=== PATIENT | female | born 1965 | race African-American/Black ===

== ENCOUNTER 2018-08-25 10:14 | Outpatient (CLI) | payer BC ==
[2018-08-25 10:41] LABS: BLOOD UREA NITROGEN 11 mg/dL (7-18); CREATININE 0.8 MG/DL (0.55-1.30)
--- NOTE | 2018-08-25 15:26 | Diagnostic Imaging Report ---
Clinical Indication: Abdominal pain, ventral hernia Technique: No oral contrast, per referring physician request. IV administration nonionic contrast. Venous phase spiral acquisition obtained through the abdomen and pelvis. Multiplanar reconstructions were generated. Total dose length product 1502.14 mGycm. CTDIvol(s) 17.05,17.93 mGy. Dose reduction achieved using automated exposure control Comparison: none Findings: There is an umbilical hernia, which contains only fat. This demonstrates normal attenuation, no evidence of strangulation. Lack of enteric contrast limits assessment of the GI tract. The appendix is normal. There is no evidence of diverticulosis or diverticulitis. No small bowel distention. No free or loculated intraperitoneal gas or fluid is evident. The distal esophagus, stomach, duodenum are all unremarkable. The liver, gallbladder, bile ducts, pancreas, spleen, adrenals are unremarkable. The kidneys demonstrate subcentimeter low-attenuation lesions which are too small to characterize. No renal or ureteral calculi, hydronephrosis, or hydroureter demonstrated. The uterus is enlarged, demonstrates multiple masses consistent with fibroids including a pedunculated subserosal fibroid on the left. Multiple cervical nabothian cysts are incidentally noted. No adnexal mass. The bones demonstrate surgical fusion hardware in the lower lumbar spine. The included lung bases are clear Impression: No acute abnormality Small fat-containing umbilical hernia. No evidence of complication related to such Enlarged uterus with multiple masses, and consistent with fibroids Subcentimeter low-attenuation renal lesions, too small to characterize, most likely benign simple cysts. No further follow-up necessary Incidental findings as noted, including evidence of prior lumbar spine fusion surgery, cervical nabothian cysts The CT scanner at [facility] is accredited by the [employer] and the scans are performed using protocols designed to limit radiation exposure to as low as reasonably achievable to attain images of sufficient resolution adequate for diagnostic evaluation.
== END 2018-08-25 12:14 | disposition home or self-care (01) ==
LOC: CAT 10:14
DX: K43.9 Ventral hernia without obstruction or gangrene (principal); K42.9 Umbilical hernia without obstruction or gangrene; Z98.1 Arthrodesis status; N88.8 Other specified noninflammatory disorders of cervix uteri
CPT/HCPCS: 36415; 74177; 82565; 84520; Q9967

== ENCOUNTER 2018-09-14 05:27 | Day surgery (SDC) | payer BC ==
[~2018-09-14] VITALS: Ht 167.6 cm; Wt 97.5 kg
[2018-09-14] VITALS (11 sets, daily range): BP systolic 130–163; BP diastolic 58–84
[2018-09-14] MEDS ORDERED: ADVAIR 250-501 EACH INH (06:05)
[2018-09-14] MEDS ORDERED: LIPITOR10 MG ORAL (06:05)
[2018-09-14 07:00] LABS: BASOPHILS % (AUTO) 1.9 % (0.0-2.0); EOSINOPHILS % (AUTO) 2.4 % (0.0-3.0); HEMATOCRIT 38.8 % (37.0-47.0); HEMOGLOBIN 12.8 G/DL (12.0-16.0); LYMPHOCYTES % (AUTO) 35.2 % (20.0-45.0); MEAN CORPUSCULAR VOLUME 83 FL (80-99); NEUTROPHILS % (AUTO) 54.5 % (45.0-75.0); PLATELET COUNT 230 K/UL (150-450); RED BLOOD COUNT 4.66 M/UL (4.20-5.40); RED CELL DISTRIBUTION WIDTH 12.7 % (11.6-14.8); WHITE BLOOD COUNT 6.8 K/UL (4.8-10.8)
[2018-09-14 07:06] LABS: INR 0.9 (0.9-1.1)
--- NOTE | 2018-09-14 07:08 | Consultation ---
History of Present Illness General Date patient seen: Jul 12, 2018 Present Illness HPI 52 year old female referred to myself for evaluation of abdominal discomfort and mass by her PCP/OB. States that she first noted small lump above her umbilicus 2 years ago and more recently has began to note discomfort. Intermittent pain. no obstructive symptoms. no n/v/f/c. normal diet and bowel function. occasionally constipated. otherwise well. Allergies: Coded Allergies: No Known Allergies (Unverified , 09/14/18) Medication History Scheduled Atorvastatin Calcium* (Lipitor*), 10 MG ORAL BEDTIME, (Reported) Fluticasone/Salmeterol (Advair 250-50 Diskus), 1 PUFF INH NEEDED, (Reported) Patient History History Provided By: Patient, Medical Record, PMD Healthcare decision maker Resuscitation status Advanced Directive on File Past Medical/Surgical History Past Medical/Surgical History: (1) Ventral hernia Review of Systems All Other Systems: negative except mentioned in HPI Physical Exam General Appearance: no apparent distress, alert Lines, tubes and drains: peripheral HEENT: normocephalic, mucous membranes moist Neck: normal inspection Respiratory/Chest: normal breath sounds, no respiratory distress, no accessory muscle use Abdomen: normal bowel sounds, soft, no organomegaly, hernia - 1 cm reducible ventral hernia noted with discomfort on palpation Extremities: non-tender Skin Exam: warm/dry Neurologic: alert Last 24 Hour Vital Signs Date Time Temp Pulse Resp B/P (MAP) Pulse Ox O2 Delivery O2 Flow Rate FiO2 09/14/18 06:11 98.0 79 20 130/58 100 Room Air 09/14/18 06:08 Room Air Laboratory Tests Test 09/14/18 05:40 09/14/18 06:30 Urine HCG, Qualitative Negative (NEGATIVE) White Blood Count 6.8 K/UL (4.8-10.8) Red Blood Count 4.66 M/UL (4.20-5.40) Hemoglobin 12.8 G/DL (12.0-16.0) Hematocrit 38.8 % (37.0-47.0) Mean Corpuscular Volume 83 FL (80-99) Mean Corpuscular Hemoglobin 27.5 PG (27.0-31.0) Mean Corpuscular Hemoglobin Concent 33.0 G/DL (32.0-36.0) Red Cell Distribution Width 12.7 % (11.6-14.8) Platelet Count 230 K/UL (150-450) Mean Platelet Volume 7.2 FL (6.5-10.1) Neutrophils (%) (Auto) 54.5 % (45.0-75.0) Lymphocytes (%) (Auto) 35.2 % (20.0-45.0) Monocytes (%) (Auto) 6.0 % (1.0-10.0) Eosinophils (%) (Auto) 2.4 % (0.0-3.0) Basophils (%) (Auto) 1.9 % (0.0-2.0) Prothrombin Time Pending Prothromb Time International Ratio Pending Activated Partial Thromboplast Time Pending Sodium Level Pending Potassium Level Pending Chloride Level Pending Carbon Dioxide Level Pending Blood Urea Nitrogen Pending Creatinine Pending Estimat Glomerular Filtration Rate Pending Glucose Level Pending Calcium Level Pending Height (Feet): 5 Height (Inches): 6 Weight (Pounds): 215 Assessment/Plan Problem List: (1) Ventral hernia Assessment & Plan: Discussed findings with patient CT performed and noted. Given duration and symptoms recommend repair risks, benefits, and alternatives discussed with patient in detail. consent obtained surgery scheduled for 09/14/2018 lap vs open ventral hernia repair with mesh ICD Codes: K43.9 - Ventral hernia without obstruction or gangrene SNOMED: [id number] Dylan Graves Sep 14, 2018 07:08
[2018-09-14 07:15] LABS: ANION GAP 6 mmol/L (5-15); BLOOD UREA NITROGEN 6 mg/dL (7-18); CALCIUM 9.1 MG/DL (8.5-10.1); CARBON DIOXIDE 29 MMOL/L (21-32); CHLORIDE 104 MMOL/L (98-107); CREATININE 0.7 MG/DL (0.55-1.30); POTASSIUM 3.9 MMOL/L (3.5-5.1); SODIUM 139 MMOL/L (136-145)
[2018-09-14] MEDS ORDERED: ceFAZolin sod 2 GM in D5W 110 ML IV ONE (07:15)
--- NOTE | 2018-09-14 07:18 | Anethesia Preoperative Eval ---
Anesthesia Pre-op PMH/ROS General Date of Evaluation: Sep 14, 2018 Anesthesiologist: Markus ASA Score: ASA 2 Mallampati Score Class I : Soft palate, uvula, fauces, pillars visible Class II: Soft palate, uvula, fauces visible Class III: Soft palate, base of uvula visible Class IV: Only hard plate visible Mallampati Classification: Class II Surgeon: Ely Diagnosis: Ventral hernia Surgical Procedure: Laparoscopic ventral hernia repair Anesthesia History: none Family History: no anesthesia problems Allergies: Coded Allergies: No Known Allergies (Unverified , 09/14/18) Medications: see eMAR Patient NPO?: Yes NPO Date: Sep 13, 2018 NPO Time: 22:00 Past Medical History Cardiovascular: Reports: other - HLD; Denies: HTN, CAD, DE, valve dz, arrhythmia Pulmonary: Reports: asthma, JACOB; Denies: COPD, other Gastrointestinal/Genitourinary: Denies: GERD, CRI, ESRD, other Neurologic/Psychiatric: Denies: dementia, CVA, depression/anxiety, TIA, other Endocrine: Reports: DM - pre-DM; Denies: hypothyroidism, steroids, other HEENT: Denies: cataract (L), cataract (R), glaucoma, [place] (L[place] (R), other Hematology/Immune: Denies: anemia, DVT, bleeding disorder, other Musculoskeletal/Integumentary: Denies: OA, RA, DJD, DDD, edema, other Other: obesity - morbid PSxH Narrative: lumbar laminectomy, c/s Anesthesia Pre-op Phys. Exam Physician Exam Last Vital Signs Date Time Temp Pulse Resp B/P (MAP) Pulse Ox O2 Delivery O2 Flow Rate FiO2 09/14/18 06:11 98.0 79 20 130/58 100 Room Air Constitutional: NAD Cardiovascular: RRR Respiratory: CTA Airway Exam Mallampati Score: Class II MO: full ROM: full Teeth: intact Anesthesia Pre-op A/P Labs Hematology Test 09/14/18 06:30 White Blood Count 6.8 K/UL (4.8-10.8) Red Blood Count 4.66 M/UL (4.20-5.40) Hemoglobin 12.8 G/DL (12.0-16.0) Hematocrit 38.8 % (37.0-47.0) Mean Corpuscular Volume 83 FL (80-99) Mean Corpuscular Hemoglobin 27.5 PG (27.0-31.0) Mean Corpuscular Hemoglobin Concent 33.0 G/DL (32.0-36.0) Red Cell Distribution Width 12.7 % (11.6-14.8) Platelet Count 230 K/UL (150-450) Mean Platelet Volume 7.2 FL (6.5-10.1) Neutrophils (%) (Auto) 54.5 % (45.0-75.0) Lymphocytes (%) (Auto) 35.2 % (20.0-45.0) Monocytes (%) (Auto) 6.0 % (1.0-10.0) Eosinophils (%) (Auto) 2.4 % (0.0-3.0) Basophils (%) (Auto) 1.9 % (0.0-2.0) Coagulation Test 09/14/18 06:30 Prothrombin Time 9.7 SEC (9.30-11.50) Prothromb Time International Ratio 0.9 (0.9-1.1) Activated Partial Thromboplast Time 27 SEC (23-33) Chemistry Test 09/14/18 06:30 Sodium Level 139 MMOL/L (136-145) Potassium Level 3.9 MMOL/L (3.5-5.1) Chloride Level 104 MMOL/L (98-107) Carbon Dioxide Level 29 MMOL/L (21-32) Anion Gap 6 mmol/L (5-15) Blood Urea Nitrogen 6 mg/dL (7-18) L Creatinine 0.7 MG/DL (0.55-1.30) Estimat Glomerular Filtration Rate > 60 mL/min (>60) Glucose Level 111 MG/DL (74-106) H Calcium Level 9.1 MG/DL (8.5-10.1) Urine Test Test 09/14/18 05:40 Urine HCG, Qualitative Negative (NEGATIVE) Studies Pre-op Studies: EKG - sr Risk Assessment & Plan Assessment: ASA II Plan: GA Status Change Before Surgery: No Pre-Antibiotics Drug: Ancef 2g Given Within 1 Hr of Incision: Chetna Griggs MD Sep 14, 2018 07:18
[2018-09-14] MEDS ORDERED: Bupivacaine w/Epi 0.25% 30ml Vial INJ ONE (07:43)
[2018-09-14] MEDS ORDERED: fentaNYL 100 mcg/2 mL IV ONE (07:50)
[2018-09-14] MEDS ORDERED: Propofol 200mg/20ml IV ONE (07:50)
[2018-09-14] MEDS ORDERED: Midazolam 2mg/2ml Inj ONE (07:50)
[2018-09-14] MEDS ORDERED: Lidocaine 1% MPF 10mg/ml 5ml ONE (07:50)
[2018-09-14] MEDS ORDERED: Zemuron 50mg/5ml Inj IV ONE (07:52)
[2018-09-14] MEDS ORDERED: LR 1000ml ONE ×2 (08:00)
[2018-09-14] MEDS ORDERED: Dexamethasone 4mg/ml vial ONE (08:09)
[2018-09-14] MEDS ORDERED: Metoclopramide 10mg/2ml Inj ONE (08:09)
[2018-09-14] MEDS ORDERED: LR 1000ml 1,000 ML IVLG SCH (08:20)
[2018-09-14] MEDS ORDERED: Midazolam 2mg/2ml Inj IVP PRN (08:30)
[2018-09-14] MEDS ORDERED: Metoclopramide 10mg/2ml Inj IVP PRN (08:30)
[2018-09-14] MEDS ORDERED: Hydromorphone 0.5mg/0.5ml inj IVP PRN (08:30)
[2018-09-14] MEDS ORDERED: fentaNYL 100 mcg/2 mL IV PRN (08:30)
[2018-09-14] MEDS ORDERED: DiphenhydrAMINE 50mg/ml Inj IVP PRN (08:30)
[2018-09-14] MEDS ORDERED: LORazepam Inj 2mg/ml 1ml IV PRN (08:30)
--- NOTE | 2018-09-14 08:32 | Pre-Procedure Note/Attestation ---
Pre-Procedure Note/Attestation Complete Prior to Procedure Planned Procedure: not applicable Procedure Narrative: laparoscopic ventral hernia repair with mesh; possible open Indications for Procedure Pre-Operative Diagnosis: ventral/umbilical hernia; symptomatic Attestation I attest that I discussed the nature of the procedure; its benefits; risks and complications; and alternatives (and the risks and benefits of such alternatives ), prior to the procedure, with the patient (or the patient's legal pest control service representative). I attest that, if there was a reasonable possibility of needing a blood transfusion, the patient (or the patient's legal pest control service representative) was given the [facility] standardized written summary, pursuant to the Kunal [place]a Blood Safety Act ([place] Health and Safety Code # 1645, as amended). I attest that I re-evaluated the patient just prior to the surgery and that there has been no change in the patient's H&P, except as documented below: Dylan Graves Sep 14, 2018 08:32
--- NOTE | 2018-09-14 08:32 | History & Physical ---
History and Physical History & Physicial [facility] General Consult Note Patient Name: Sandra Kothari Unit Number: [id number] Date of : 1965 Patient Status: Registered Surgical Day Care Attending Doctor: Dylan Graves [facility] History of Present Illness General Date patient seen: Jul 12, 2018 Present Illness HPI 52 year old female referred to myself for evaluation of abdominal discomfort and mass by her PCP/OB. States that she first noted small lump above her umbilicus 2 years ago and more recently has began to note discomfort. Intermittent pain. no obstructive symptoms. no n/v/f/c. normal diet and bowel function. occasionally constipated. otherwise well. Allergies: Coded Allergies: No Known Allergies (Unverified , 09/14/18) Medication History Scheduled Atorvastatin Calcium* (Lipitor*), 10 MG ORAL BEDTIME, (Reported) Fluticasone/Salmeterol (Advair 250-50 Diskus), 1 PUFF INH NEEDED, (Reported) Patient History History Provided By: Patient, Medical Record, PMD Healthcare decision maker Resuscitation status Advanced Directive on File Past Medical/Surgical History Past Medical/Surgical History: (1) Ventral hernia ROS Review of Systems All Other Systems: negative except mentioned in HPI Physical Exam Physical Exam General Appearance: no apparent distress, alert Lines, tubes and drains: peripheral HEENT: normocephalic, mucous membranes moist Neck: normal inspection Respiratory/Chest: normal breath sounds, no respiratory distress, no accessory muscle use Abdomen: normal bowel sounds, soft, no organomegaly, hernia - 1 cm reducible ventral hernia noted with discomfort on palpation Extremities: non-tender Skin Exam: warm/dry Neurologic: alert Last 24 Hour Vital Signs Date Time Temp Pulse Resp B/P (MAP) Pulse Ox O2 Delivery O2 Flow Rate FiO2 09/14/18 06:11 98.0 79 20 130/58 100 Room Air 09/14/18 06:08 Room Air Laboratory Tests Test 09/14/18 05:40 09/14/18 06:30 Urine HCG, Qualitative Negative (NEGATIVE) White Blood Count 6.8 K/UL (4.8-10.8) Red Blood Count 4.66 M/UL (4.20-5.40) Hemoglobin 12.8 G/DL (12.0-16.0) Hematocrit 38.8 % (37.0-47.0) Mean Corpuscular Volume 83 FL (80-99) Mean Corpuscular Hemoglobin 27.5 PG (27.0-31.0) Mean Corpuscular Hemoglobin Concent 33.0 G/DL (32.0-36.0) Red Cell Distribution Width 12.7 % (11.6-14.8) Platelet Count 230 K/UL (150-450) Mean Platelet Volume 7.2 FL (6.5-10.1) Neutrophils (%) (Auto) 54.5 % (45.0-75.0) Lymphocytes (%) (Auto) 35.2 % (20.0-45.0) Monocytes (%) (Auto) 6.0 % (1.0-10.0) Eosinophils (%) (Auto) 2.4 % (0.0-3.0) Basophils (%) (Auto) 1.9 % (0.0-2.0) Prothrombin Time Pending Prothromb Time International Ratio Pending Activated Partial Thromboplast Time Pending Sodium Level Pending Potassium Level Pending Chloride Level Pending Carbon Dioxide Level Pending Blood Urea Nitrogen Pending Creatinine Pending Estimat Glomerular Filtration Rate Pending Glucose Level Pending Calcium Level Pending Height (Feet): 5 Height (Inches): 6 Weight (Pounds): 215 Assessment/Plan Assessment/Plan Problem List: (1) Ventral hernia Assessment & Plan: Discussed findings with patient CT performed and noted. Given duration and symptoms recommend repair risks, benefits, and alternatives discussed with patient in detail. consent obtained surgery scheduled for 09/14/2018 lap vs open ventral hernia repair with mesh ICD Codes: K43.9 - Ventral hernia without obstruction or gangrene SNOMED: [id number] Dylan Graves Sep 14, 2018 07:08 ElySep 14, 2018 08:32
--- NOTE | 2018-09-14 09:45 | Immediate Post-Op Evaluation ---
Immediate Post-Op Evalulation Immediate Post-Op Evalulation Procedure: Laparoscopic ventral hernia repair Date of Evaluation: Sep 14, 2018 Time of Evaluation: 09:47 IV Fluids: 1.3L Blood Products: 0 Estimated Blood Loss: min Urinary Output: 0 Blood Pressure Systolic: 160 Blood Pressure Diastolic: 82 Pulse Rate: 96 Respiratory Rate: 17 O2 Sat by Pulse Oximetry: 100 Temperature (Fahrenheit): 97.8 Pain Score (1-10): 0 Nausea: No Vomiting: No Complications 0 Patient Status: awake, reacts, patent, none Hydration Status: adequate Drug: Ancef 2g Given Within 1 Hr of Incision: Yes Time Given: 08:05 Chetna Johnston MD Sep 14, 2018 09:45
--- NOTE | 2018-09-14 09:46 | 48 Hour Post Anesthesia Eval ---
Post Anesthesia Evaluation Procedure: Laparoscopic ventral hernia repair Date of Evaluation: Sep 14, 2018 Airway: patent Nausea: No Vomiting: No Pain Intensity: 0 Hydration Status: adequate Cardiopulmonary Status: at baseline Mental Status/LOC: patient returned to baseline Post-Anesthesia Complications: 0 Follow-up care needed: ready to discharge Chetna Johnston MD Sep 14, 2018 09:46
--- NOTE | 2018-09-14 09:49 | Brief Operative Note ---
Immediate Post Operative Note Operative Note Pre-op Diagnosis: ventral/umbilical hernia; symptomatic Procedure: laparoscopic ventral hernia repair with mesh Post-op Diagnosis: same as pre-op Surgeon: adan Anesthesiologist: Markus Anesthesia: general, local Specimen: none Complications: none Condition: stable Fluids: see records Estimated Blood Loss: minimal Drains: none Implant(s) used?: Yes - mesh Dylan Graves Sep 14, 2018 09:49
[2018-09-14] MEDS ORDERED: HYDROmorphone 1mg/ml Carpuject SUBQ PRN (10:00)
[2018-09-14] MEDS ORDERED: Norco 5mg/325mg tab ORAL PRN (10:00)
[2018-09-14] MEDS ORDERED: D5 1/2NS 1,000 ML IV SCH (10:00)
[2018-09-14] MEDS ORDERED: Tylenol #3 tab (300mg/30mg) ORAL PRN (10:00)
--- NOTE | 2018-09-14 19:15 | Operative Note - Dictated ---
DATE OF OPERATION: 09/14/2018 PREOPERATIVE DIAGNOSIS: Reducible ventral hernia. POSTOPERATIVE DIAGNOSIS: Reducible ventral hernia. OPERATION PERFORMED: Laparoscopic ventral hernia repair with mesh. ATTENDING SURGEON: Dylan Graves M.D. PLANT AND EQUIPMENT WORKER: None. ANESTHESIOLOGIST: Dr. Aparicio. 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 ESTIMATED BLOOD LOSS: Minimal. IV FLUIDS: Please see anesthesia records. COMPLICATIONS: None. DRAINS: None. SPECIMENS: None. WOUND CLASSIFICATION: Class I. COUNTS: Sponge and needle count correct x2. ANTIBIOTICS: The patient was 2 g of Ancef one hour prior to cut time. IMPLANTS: Mosaic 15 x 15 cm [employer] mesh, lot number [id number], reference [id number], expiration 05/01/2021, and Covidien AbsorbaTack, reference [id number], lot number [id number], expiration 05/19/2021. INDICATIONS FOR PROCEDURE: This is a very pleasant 52-year-old female, who was referred to Dr. Graves for evaluation of symptomatic ventral hernia. The patient states that two years ago, she began to notice a hernia around the area of her umbilicus and in the past few months has become more symptomatic with intermittent pain. On examination, she was noted to have a reducible ventral hernia and CT scan was performed, which identified a ventral/umbilical hernia with fat contents. Surgery was indicated and recommended. Risks, benefits, and alternatives were discussed with the patient in detail who expressed understanding and consented to surgery. OPERATIVE NOTE: The patient was taken to the operating room and placed on the operating table in supine position with bilateral arms out. All bony prominences well padded. SCDs were placed. Operative antibiotics were given one hour prior to cut time. Preoperative time-out was taken identifying the patient, procedure, operative staff, and surgical staff. General anesthesia was induced and the patient was intubated. The abdomen was clipped, prepped, and draped in the standard surgical fashion. A local anesthetic was infiltrated throughout all proposed skin incision and trocar sites. At first, initial trocar site planned for ferrell's point in the left upper quadrant. A skin incision was made after administration of local anesthetic using a fresh #11 scalpel. A Fios tipped 5 mm trocar with a camera was used to enter the abdomen under direct visualization through the subcutaneous tissues, fascia, muscle, and peritoneal lining. Once inside the peritoneum, the abdomen was insufflated to 12 to 15 mmHg. The laparoscope was inserted and the abdomen inspected and no injury from initial trocar placement noted. Upon initially evaluating the abdomen, there was a pericolonic trans colon fat, which was incarcerated into the ventral hernia. The liver and remainder of the abdomen looked otherwise normal. Secondary trocars were placed under direct visualization beginning with a left mid quadrant 12 mm trocar followed by a left lower quadrant 5 mm trocar. Once this was complete, the hernia contents were reduced with gentle traction using graspers as well as reduction by external pressure through the ventral defect. Once reduced, the contents were inspected and noted to be viable. No resection was necessary. At this time, the small hernia sac was identified and the hernia defect was closed laparoscopically using a [id number] Vicryl suture. After repair of defect, decision was made to place a mesh. Given that a long discussion was had with the patient preoperatively about mesh and decision was made to proceed with mesh placement for adequate repair. A mosaic laparoscopic dual sided 15 x 15 mesh was inserted through the 12 mm trocar into the abdomen and tacked to the abdominal wall using a Covidien AbsorbaTack. Satisfactory hernia repair with mesh was identified at the conclusion of the procedure. No intraoperative complications were noted. Secondary trocars were removed under direct visualization and the abdomen was desufflated. The 12 mm trocar site fascia was closed using a [id number] Vicryl suture followed by reapproximation of the skin incisions using 4-0 Monocryl subcuticular interrupted sutures. Skin glue and Steri-Strips were applied. The patient tolerated the procedure well, was extubated, and taken to postanesthetic care unit in stable condition. Dylan Graves M.D. DR: Josue JOB#: [id number] CC: SARAH
== END 2018-09-14 14:15 | disposition home or self-care (01) ==
LOC: SUR 05:27
DX: K43.9 Ventral hernia without obstruction or gangrene (principal); E78.5 Hyperlipidemia, unspecified; G47.33 Obstructive sleep apnea (adult) (pediatric); R73.03 Prediabetes
CPT/HCPCS: 36415; 49654; 80048; 81025; 85025; 85610; 85730; 93005; J0690; J1100; J1170; J2250; J2405; J2704; J2765; J3010; 94003; 94150